=== PATIENT | female | born 1960 | race Caucasian/White ===

== ENCOUNTER 2016-10-10 18:53 | Emergency (ER) | payer OTHER ==
[~2016-10-10] VITALS: Ht 160 cm; Wt 98.0 kg
[~2016-10-10 18:53] MED LIST: CYCL-36 PO; LORTA5 PO; PROT40TA PO; RIVA15 PO
[2016-10-10 18:59] VITALS: BP 130/74; PULSE 84; RESP 18; TEMP 98.5; O2SAT 93
--- NOTE | 2016-10-10 19:40 | PD ---
HPI Chief Complaint: Headache Time Seen by Provider: 19:30 Travel History International Travel<30 days: No Contact w/Intl Traveler<30days: No Traveled to known affect area: No History of Present Illness HPI The patient is a 56-year-old female that complains of a gradual bifrontal headache that began at 9 AM yesterday. It increased gradually until 4 PM today and the patient came in. She does have nausea without vomiting and blurred vision. The patient is a diabetic. She did not check her sugars today. Last time she had a headache like this was one year ago. She does complain of some nonvertiginous dizziness. She apparently is being treated for a bilateral otitis externa. She also has a sore throat. PFSH Past Medical History Arthritis: No Asthma: No Autoimmune Disease: No Anxiety: No Depression: No Heart Rhythm Problems: No Cancer: No Cardiovascular Problems: Yes High Cholesterol: No Chemotherapy: No Chest Pain: No Congestive Heart Failure: No Cerebrovascular Accident: No Diabetes: Yes Patient Takes Glucophage: Yes Diminished Hearing: No Endocrine: No GERD: No Genitourinary: No Hiatal Hernia: No Hypertension: Yes Immune Disorder: No Kidney Stones: No Musculoskeletal: Yes (CHRONIC BACK PAIN) Neurologic: No Psychiatric: No Reproductive: No Respiratory: Yes (past pe) Immunizations Current: Yes Migraines: No Radiation Therapy: No Renal Failure: No Seizures: No Sickle Cell Disease: No Sleep Apnea: No Thyroid Disease: No Ulcer: No Tetanus Vaccination: Unknown Influenza Vaccination: No ?: Not LMP: 2 years Menopausal: Yes : 2 Para: 2 Past Surgical History Abdominal Surgery: Yes () AICD: No Arteriovenous Shunt: No Cardiac Surgery: No Section: Yes Ear Surgery: No Endocrine Surgery: No Eye Surgery: No Genitourinary Surgery: No Gynecologic Surgery: Yes () Insulin Pump: No Joint Replacement: No Neurologic Surgery: No Oral Surgery: No Pacemaker: No Thoracic Surgery: No Tonsillectomy: Yes Other Surgery: Yes Social History Alcohol Use: No Tobacco Use: No Substance Use: No Allergies-Medications (Allergen,Severity, Reaction): Coded Allergies: Sulfa (Verified Allergy, Severe, Anaphylaxis, 10/10/16) Reported Meds & Prescriptions Reported Meds & Active Scripts Active Reported Amoxicillin 500 Mg Cap 500 Mg PO BID Tramadol (Tramadol HCl) 50 Mg Tab 50 Mg PO Q6H PRN Metformin (Metformin HCl) 500 Mg Tab 500 Mg PO BIDPC With meals Lisinopril 20 Mg Tab 20 Mg PO DAILY Review of Systems Except as stated in HPI: all other systems reviewed are Neg Physical Exam Narrative GENERAL: The patient is alert, oriented 3 in moderate apparent distress with her generalized weakness. Her vital signs are normal. She does appear slightly dehydrated. There is no ketotic smell to her breath. SKIN: Warm and dry. No skin rash is present. HEAD: Atraumatic. Normocephalic. EYES: Pupils equal and round. No scleral icterus. No injection or drainage. ENT: No nasal bleeding or discharge. Mucous membranes pink and moist. Both canals show infection and tenderness but both tympanic membranes are clear. The throat is red without exudate or abscess. NECK: Trachea midline. No JVD. CARDIOVASCULAR: Regular rate and rhythm. No murmur appreciated. RESPIRATORY: No accessory muscle use. Clear to auscultation. Breath sounds equal bilaterally. GASTROINTESTINAL: Abdomen soft, non-tender, nondistended. Hepatic and splenic margins not palpable. MUSCULOSKELETAL: No obvious deformities. No clubbing. No cyanosis. No edema. NEUROLOGICAL: Awake and alert. No obvious cranial nerve deficits. Motor grossly within normal limits. Normal speech. PSYCHIATRIC: The patient is anxious; insight and judgment normal. Data Data Last Documented VS Vital Signs Date Time Temp Pulse Resp B/P Pulse Ox O2 Delivery O2 Flow Rate FiO2 10/10/16 21:11 86 18 102/55 96 Room Air 10/10/16 18:59 98.5 Orders Complete Blood Count With Diff (10/10/16 19:42) Comprehensive Metabolic Panel (10/10/16 19:42) Ct Brain W/O Iv Contrast(Rout) (10/10/16 19:42) Ecg Monitoring (10/10/16 19:42) Iv Access Insert/Monitor (10/10/16 19:42) Oximetry (10/10/16 19:42) Sodium Chloride 0.9% Flush (Ns Flush) (10/10/16 19:45) Ketorolac Inj (Toradol Inj) (10/10/16 19:45) Prochlorperazine Inj (Compazine Inj) (10/10/16 19:45) Diphenhydramine Inj (Benadryl Inj) (10/10/16 19:45) Sodium Chlor 0.9% 1000 Ml Inj (Ns 1000 M (10/10/16 19:42) Hydromorphone Pf Inj (Dilaudid Pf Inj) (10/10/16 19:45) Group A Rapid Strep Screen (10/10/16 19:56) Strep Culture (Group A) (10/10/16 19:50) Labs Laboratory Tests Test 10/10/16 19:50 White Blood Count 7.1 TH/MM3 Red Blood Count 4.63 MIL/MM3 Hemoglobin 13.1 GM/DL Hematocrit 39.7 % Mean Corpuscular Volume 85.8 FL Mean Corpuscular Hemoglobin 28.3 PG Mean Corpuscular Hemoglobin 33.0 % Concent Red Cell Distribution Width 12.9 % Platelet Count 324 TH/MM3 Mean Platelet Volume 7.2 FL Neutrophils (%) (Auto) 67.7 % Lymphocytes (%) (Auto) 22.9 % Monocytes (%) (Auto) 6.4 % Eosinophils (%) (Auto) 2.5 % Basophils (%) (Auto) 0.5 % Neutrophils # (Auto) 4.8 TH/MM3 Lymphocytes # (Auto) 1.6 TH/MM3 Monocytes # (Auto) 0.5 TH/MM3 Eosinophils # (Auto) 0.2 TH/MM3 Basophils # (Auto) 0.0 TH/MM3 CBC Comment DIFF FINAL Differential Comment Sodium Level 142 MEQ/L Potassium Level 3.9 MEQ/L Chloride Level 106 MEQ/L Carbon Dioxide Level 27.7 MEQ/L Anion Gap 8 MEQ/L Blood Urea Nitrogen 15 MG/DL Creatinine 0.90 MG/DL Estimat Glomerular Filtration 65 ML/MIN Rate Random Glucose 119 MG/DL Calcium Level 8.4 MG/DL Total Bilirubin 0.4 MG/DL Aspartate Amino Transf 48 U/L (AST/SGOT) Alanine Aminotransferase 90 U/L (ALT/SGPT) Alkaline Phosphatase 80 U/L Total Protein 7.4 GM/DL Albumin 3.6 GM/DL [facility] Medical Decision Making Medical Screen Exam Complete: Yes Emergency Medical Condition: Yes Medical Record Reviewed: Yes Interpretation(s) The CT brain is normal. The CBC is normal. The complete metabolic profile shows a GFR of 65, AST of 48, ALT of 90 is otherwise unremarkable. The strep screen is negative for group A strep antigen. Differential Diagnosis Migraine headache, tension headache, tension/migraine combination headache, normal pressure hydrocephalusunlikely, cluster headache, subarachnoid hemorrhagehighly unlikely Narrative Course It is now 9:17 PM and the patient feels much better. This is likely a migraine headache. It is one sided, associated with photophobia and nausea and she has had this before. Plan: The patient should follow-up with her primary care physician and is given Phenergan and Fioricet. Diagnosis Primary Impression: Migraine headache Additional Instructions: Do not drink alcohol or drive on the Fioricet or the Phenergan. Follow-up with these medications can make you sleepy. These medicines are only used when you start to get one of your bad headaches. Follow-up this week with your primary care physician. Med/Other Pt SpecificInfo: Prescription(s) given Scripts Promethazine (Phenergan)25 Mg Tab25 Mg PO Q6H PRN (Nausea/Vomiting) #30 TAB Ref 0 Prov:Chaitanya Nichols MD 10/10/16 Sfcmfrkhgq-Exocjgmxbougk-Urntosyn (Fioricet)50-300-40 Mg Cap1 Cap PO Q4H PRN ( HEADACHE) #30 CAP Ref 0 Prov:Chaitanya Nichols MD 10/10/16 Disposition: 01 DISCHARGE HOME Condition: Stable Chaitanya Nihcols MD Oct 10, 2016 19:40
[2016-10-10] MEDS ORDERED: SODIUM CHLOR 0.9% 1000 ML INJ 1,000 ML IV ONE (19:42)
[2016-10-10] MEDS ORDERED: TRAM50TA PO (19:44)
[2016-10-10] MEDS ORDERED: METF500T PO (19:44)
[2016-10-10] MEDS ORDERED: LISI-515 PO (19:44)
[2016-10-10] MEDS ORDERED: AMOX500C PO (19:44)
[2016-10-10] MEDS ORDERED: SODIUM CHLORIDE 0.9% FLUSH 5 ML FLUSH IVF PRN (19:45)
[2016-10-10] MEDS ORDERED: PROCHLORPERAZINE INJ 10 MG/2 ML VIAL IVP ONE (19:45)
[2016-10-10] MEDS ORDERED: HYDROmorphone HCL PF 1 MG/ML VIAL IVP ONE (19:45)
[2016-10-10] MEDS ORDERED: diphenhydrAMINE HCL 50 MG/ML VIAL IVP ONE (19:45)
[2016-10-10] MEDS ORDERED: KETOROLAC TROMETHAMINE 30 MG/ML (IVP) VIAL IVP ONE (19:45)
[2016-10-10 19:56] VITALS: RESP 18; O2SAT 98
[2016-10-10 20:09] LABS: AUTOMATED NEUTROPHIL # 4.8 TH/MM3 (1.8-7.7); BASOPHIL % 0.5 % (0.0-2.0); EOSINOPHIL # 0.2 TH/MM3 (0-0.4); EOSINOPHIL % 2.5 % (0.0-4.0); HEMATOCRIT 39.7 % (35.0-46.0); HEMO FLAGS DIFF FINAL; LYMPH % 22.9 % (9.0-44.0); LYMPHOCYTE # 1.6 TH/MM3 (1.0-4.8); MEAN CELL VOLUME 85.8 FL (80.0-100.0); MEAN CORPUSCULAR HEMOGLOBIN 28.3 PG (27.0-34.0); MONO % 6.4 % (0.0-8.0); NEUT % 67.7 % (16.0-70.0); PLATELET COUNT 324 TH/MM3 (150-450); RED BLOOD COUNT 4.63 MIL/MM3 (4.00-5.30); RED CELL DISTRIBUTION WIDTH 12.9 % (11.6-17.2); WHITE BLOOD COUNT 7.1 TH/MM3 (4.0-11.0)
[2016-10-10 20:14] VITALS: BP 134/63; PULSE 96; RESP 18; O2SAT 97
[2016-10-10 20:16] LABS: CHLORIDE 106 MEQ/L (98-107); POTASSIUM 3.9 MEQ/L (3.5-5.1); SODIUM (NA) 142 MEQ/L (136-145)
[2016-10-10 20:20] LABS: ANION GAP 8 MEQ/L (5-15); BICARBONATE 27.7 MEQ/L (21.0-32.0); BLOOD UREA NITROGEN 15 MG/DL (7-18)
[2016-10-10 20:23] LABS: ALT (GPT) 90 U/L (10-53); AST (GOT) 48 U/L (15-37); GLOMERULAR FILTRATION RATE 65 ML/MIN (>89)
[2016-10-10 20:24] LABS: TOTAL BILIRUBIN ADULT 0.4 MG/DL (0.2-1.0)
[2016-10-10 20:26] LABS: ALKALINE PHOSPHATASE 80 U/L (45-117)
--- NOTE | 2016-10-10 20:35 | RADHPO ---
EXAM DATE/TIME: 10/10/2016 20:15 [place] COMPARISON: No previous studies available for comparison. INDICATIONS : Frontal headache and nausea. RADIATION DOSE: 57.65 CTDIvol (mGy) MEDICAL HISTORY : Hypertension. Diabetes SURGICAL HISTORY : None. ENCOUNTER: Initial ACUITY: 2 days PAIN SCALE: 6/10 LOCATION: Bilateral frontal TECHNIQUE: Multiple contiguous axial images were obtained of the head. Using automated exposure control and adj ustment of the mA and/or kV according to patient size, radiation dose was kept as low as reasonably a chievable to obtain optimal diagnostic quality images. FINDINGS: CEREBRUM: The ventricles are normal for age. No evidence of midline shift, mass lesion, hemorrhage or acute in farction. No extra-axial fluid collections are seen. POSTERIOR FOSSA: The cerebellum and brainstem are intact. The 4th ventricle is midline. The cerebellopontine angle i s unremarkable. EXTRACRANIAL: The visualized portion of the orbits is intact. SKULL: The calvaria is intact. No evidence of skull fracture. CONCLUSION: Normal examination. Umair Brown MD on October 10, 2016 at 20:33 Board Certified Radiologist. This report was verified electronically.
[2016-10-10 21:11] VITALS: BP 102/55; PULSE 86; RESP 18; O2SAT 96
[2016-10-10] MEDS ORDERED: BUTA1CAP PO (21:19)
[2016-10-10] MEDS ORDERED: PROM25TA5 PO (21:19)
== END 2016-10-10 22:06 | disposition home or self-care (01) ==
LOC: PHED 18:53
DX: G43.909 Migraine, unspecified, not intractable, without status migrainosus (principal); R42 Dizziness and giddiness; R11.0 Nausea; E11.9 Type 2 diabetes mellitus without complications; I10 Essential (primary) hypertension; J02.9 Acute pharyngitis, unspecified; H60.93 Unspecified otitis externa, bilateral; Z79.84 Long term (current) use of oral hypoglycemic drugs
CPT/HCPCS: 70450; 80053; 85025; 87081; 87880; 96361; 96374; 96375; 99284; J0780; J1170; J1200; J1885; J7030

== ENCOUNTER → 2017-07-19 | Day surgery (SDC) | payer OTHER ==
[~2017-07-19] MED LIST changes: +AMOX500C PO; +BUTA1CAP PO; -CYCL-36 PO; +LISI-515 PO; -LORTA5 PO; +METF500T PO; +MIDAZOLAM HCL 2 MG/2 ML VIAL ONE; +ONDANSETRON HCL 4 MG/2 ML VIAL IV PUSH ONE; +PROM25TA5 PO; +PROPOFOL 200 MG/20 ML AMP IV ONE; -PROT40TA PO; -RIVA15 PO; +TRAM50TA PO; +ceFAZolin 2 GM PREMIX 50 ML ONE
--- NOTE | 2017-07-19 09:01 | MP ---
cc: NOHELIA CASTRO M.D., CARLOS M.D. DATE OF SURGERY 07/19/2017 DATE OF 1960 PREOPERATIVE DIAGNOSIS Patient with postmenopausal bleeding, suspected endometrial polyp. PROCEDURE Exam under anesthesia. Diagnostic hysteroscopy with polypectomy. Fractional D&C. POSTOPERATIVE DIAGNOSIS Patient with postmenopausal bleeding, suspected endometrial polyp. SURGEON MD Mukesh ANESTHESIA General with LMA. ESTIMATED BLOOD LOSS Less than 25 cc. OPERATIVE FINDINGS The patient had atrophic findings. Endometrial cavity demonstrated a small less than 1-cm polyp arising from the posterior endometrium. The rest of the cavity was atrophic in appearance. The patient had no other significant findings during the exam. INDICATIONS FOR PROCEDURE Patient with a history of recurrent postmenopausal bleeding. Ultrasound revealed a lesion within the endometrial cavity, suspected polyp. RECOMMENDATION Proceed with diagnostic hysteroscopy and polypectomy. PROCEDURE The patient received Ancef 2 grams prophylactically. She underwent general anesthesia with LMA. She was carefully positioned in dorsal lithotomy position using candy-cane stirrups. She had sequentials placed on her lower extremities for VTE prophylaxis and then she was prepped and draped. A time-out was conducted and agreed on by all present in the room. The patient's exam was as stated above. There was no evidence of prolapse. She just had some atrophic findings. The cervix was midline and normal in appearance. The uterus was anteverted. The uterine sound was placed to about 8 cm. The cervix was dilated using simple Mc dilators securing the cervix anteriorly with a single-tooth tenaculum. A 5-mm rigid hysteroscope was used to examine the cavity using normal saline as a distension media. The findings were as described above. This was followed by use of a simple polyp forceps and a sharp curette to remove the polyp. Re-examination of the endometrial cavity after the polypectomy revealed removal of the lesion. There was a scan bleeding from the base of the polyp, otherwise no significant lesion. No perforation occurred. Tissue specimens were sent as endocervical and endometrial plus polyp. At the completion of case the patient was stable and there was no active bleeding. Full count was made and correct. She was taken to the recovery room on room air. MD MELI Calvin/FLIP /8:44 AM /8:49 AM
== END | disposition home or self-care (01) ==
LOC: ESDC 07:19
PROVIDERS: ATTEND Obstetrics & Gynecology
DX: N95.0 Postmenopausal bleeding (principal)
CPT/HCPCS: 00952; 58558; 88305; J0690; J2250; J2405; J3010

== ENCOUNTER 2018-07-05 23:08 | Observation (INO) ==
--- NOTE | 2018-07-05 23:54 | ED ---
HPI General Chief Complaint: Chest Pain Stated Complaint: sob Time Seen by Provider: 07/05/18 23:21 History of Present Illness HPI narrative: Patient is a 57-year-old female who tonight woke up from sleep got to the bathroom and suddenly felt short of breath and chest pain she thought she might pass out she called her to come in Holter. Patient has a history of diabetes which is diet controlled and recently she had able to come off of metformin as her diet low-carb was decreasing her need for metformin. She also takes medications for fibromyalgia she takes BuSpar as well as amitriptyline low-dose. No new medications tonight she was feeling fine until she woke up from sleep walk to the bathroom and thought suddenly onset of shortness of breath chest pain comes to the ER doing weak generalized. Nothing is taken for the symptoms no nausea no vomit no diarrhea reported. Patient has a history 2 years ago she had a pulmonary embolism and was on Coumadin for 6 months and has been off now for a year and a half. In the ER heart rate is normal sinus at 85 bpm her EKG has a low voltage to low amplitude in all leads but no signs of ST elevation or depression she does have flipped T' s in V2. I will do a CAT scan labs fluid to rule out pulmonary embolism Related Data Home Medications Medication Instructions Recorded Confirmed amitriptyline 50 mg PO QPM 07/05/18 07/05/18 bupropion HCl 100 mg PO QAM 07/05/18 07/05/18 Allergies Allergy/AdvReac Type Severity Reaction Status Date / Time Sulfa (Sulfonamide Allergy Severe Anaphylaxis Verified 07/05/18 23:28 Antibiotics) Review of Systems ROS: all other systems reviewed are negative [facility] Family History Family History Other Cardiovascular disease Social History Social History Substance History: No History of Abuse Second Hand Smoke Exposure: No Smoking Status: Never smoker How Often Do You Have a Drink Containing Alcohol: Never Recent Travel in [facility] within the Last 8 Weeks: No Recent Out of Country Travel within the Last 8 Weeks: No Immunization History Tetanus Immunization: Never Vaccinated Exam Narrative Exam Narrative: GENERAL: appears listless , afebrile 95% sat on room Air SKIN: Warm and dry. HEAD: Atraumatic. Normocephalic. EYES: Pupils equal and round. No scleral icterus. No injection or drainage. ENT: No nasal bleeding or discharge. Mucous membranes pink and moist. NECK: Trachea midline. No JVD. CARDIOVASCULAR: Regular rate and rhythm. RESPIRATORY: No accessory muscle use. Clear to auscultation. Breath sounds equal bilaterally. GASTROINTESTINAL: Abdomen soft, non-tender, nondistended. Hepatic and splenic margins not palpable. MUSCULOSKELETAL: Extremities without clubbing, cyanosis, or edema. No obvious deformities. NEUROLOGICAL: Awake and alert. No obvious cranial nerve deficits. Motor grossly within normal limits. Five out of 5 muscle strength in the arms and legs. Normal speech. PSYCHIATRIC: Appropriate mood and affect; insight and judgment normal. Course Initial Documented Vital Signs Temperature 98.0 F 07/05/18 23:28 Pulse Rate 77 07/05/18 23:28 Respiratory Rate 20 07/05/18 23:28 Blood Pressure 119/61 07/05/18 23:28 Pulse Oximetry 96 07/05/18 23:28 Last Documented Vital Signs Temperature 97.1 F L 07/06/18 12:41 Pulse Rate 87 07/06/18 15:16 Respiratory Rate 18 07/06/18 12:41 Blood Pressure 126/73 07/06/18 12:41 Pulse Oximetry 96 07/06/18 08:30 Medical Decision Making MDM Narrative Medical decision making narrative: CTA pulmonary no findings no PE no PNA no PTX ekg negative no change from prior EKG from 2104 minimal elevations in 2,3, and AVL same as 2014 no chagne trop neg times 2 admit to tele observ Medical Screen Exam Complete: Yes Emergency Medical Condition: Yes Differential Diagnosis Differential Diagnosis: DVT with PE vs acs non stemi , PNA vs PTX other Lab Data Result diagrams: 07/06/18 00:08 07/06/18 13:40 Lab Results 07/06/18 07/06/18 07/06/18 Range/Units 00:08 00:08 00:08 CBC w Diff Auto diff final WBC 7.9 (4.0-11.0) th/mm3 RBC 4.85 (4.00-5.30) mil/mm3 Hgb 13.7 (11.6-15.3) gm/dL Hct 41.6 (35.0-46.0) % MCV 85.8 (80.0-100.0) fL MCH 28.3 (27.0-34.0) pg MCHC 33.0 (32.0-36.0) % RDW 13.2 (11.6-17.2) % Plt Count 277 (150-450) th/mm3 MPV 7.9 (7.0-11.0) fL Neut % (Auto) 59.3 (16.0-70.0) % Lymph % (Auto) 31.3 (9.0-44.0) % [place] % (Auto) 5.9 (0.0-8.0) % Eos % (Auto) 2.7 (0.0-4.0) % Baso % (Auto) 0.8 (0.0-2.0) % Neut # (Auto) 4.6 (1.8-7.7) th/mm3 Lymph # (Auto) 2.5 (1.0-4.8) th/mm3 [place] # (Auto) 0.5 (0.0-0.9) th/mm3 Eos # (Auto) 0.2 (0.0-0.4) th/mm3 Baso # (Auto) 0.1 (0.0-0.2) th/mm3 WBC Differential . Differential Comment . PT (9.8-11.6) sec INR Ratio D-Dimer Quant (PE/DVT) 0.41 (0.00-0.50) mg/L FEU Sodium 139 (136-145) meq/L Potassium 4.1 (3.5-5.1) meq/L Chloride 105 (98-107) meq/L Carbon Dioxide 24.9 (21.0-32.0) meq/L Anion Gap 9 (5-15) meq/L BUN 18 (7-18) mg/dL Creatinine 1.40 H (0.50-1.00) mg/dL Estimated GFR 39 L (>89) mL/min POC Glucose (68-110) mg/dl Random Glucose 135 H (74-106) mg/dL Calcium 8.4 L (8.5-10.1) mg/dL Total Bilirubin 0.4 (0.2-1.0) mg/dL AST 24 (15-37) U/L ALT 38 (10-53) U/L Alkaline Phosphatase 75 (45-117) U/L Total Creatine Kinase (26-192) U/L Troponin I (0.02-0.05) ng/mL Total Protein 7.6 (6.4-8.2) g/dL Albumin 3.8 (3.4-5.0) g/dL Triglycerides (42-150) mg/dL Cholesterol (120-200) mg/dL LDL Cholesterol, Calc (0-99) mg/dL HDL Cholesterol (40.0-60.0) mg/dL Cholesterol/HDL Ratio Ratio 07/06/18 07/06/18 07/06/18 Range/Units 00:08 01:59 01:59 CBC w Diff WBC (4.0-11.0) th/mm3 RBC (4.00-5.30) mil/mm3 Hgb (11.6-15.3) gm/dL Hct (35.0-46.0) % MCV (80.0-100.0) fL MCH (27.0-34.0) pg MCHC (32.0-36.0) % RDW (11.6-17.2) % Plt Count (150-450) th/mm3 MPV (7.0-11.0) fL Neut % (Auto) (16.0-70.0) % Lymph % (Auto) (9.0-44.0) % [place] % (Auto) (0.0-8.0) % Eos % (Auto) (0.0-4.0) % Baso % (Auto) (0.0-2.0) % Neut # (Auto) (1.8-7.7) th/mm3 Lymph # (Auto) (1.0-4.8) th/mm3 [place] # (Auto) (0.0-0.9) th/mm3 Eos # (Auto) (0.0-0.4) th/mm3 Baso # (Auto) (0.0-0.2) th/mm3 WBC Differential Differential Comment PT 10.2 (9.8-11.6) sec INR 1.0 Ratio D-Dimer Quant (PE/DVT) (0.00-0.50) mg/L FEU Sodium (136-145) meq/L Potassium (3.5-5.1) meq/L Chloride (98-107) meq/L Carbon Dioxide (21.0-32.0) meq/L Anion Gap (5-15) meq/L BUN (7-18) mg/dL Creatinine (0.50-1.00) mg/dL Estimated GFR (>89) mL/min POC Glucose (68-110) mg/dl Random Glucose (74-106) mg/dL Calcium (8.5-10.1) mg/dL Total Bilirubin (0.2-1.0) mg/dL AST (15-37) U/L ALT (10-53) U/L Alkaline Phosphatase (45-117) U/L Total Creatine Kinase (26-192) U/L Troponin I Less than 0.02 L (0.02-0.05) ng/mL Total Protein (6.4-8.2) g/dL Albumin (3.4-5.0) g/dL Triglycerides 91 (42-150) mg/dL Cholesterol 170 (120-200) mg/dL LDL Cholesterol, Calc 105 H (0-99) mg/dL HDL Cholesterol 46.9 (40.0-60.0) mg/dL Cholesterol/HDL Ratio 3.62 Ratio 07/06/18 07/06/18 07/06/18 Range/Units 03:20 06:33 12:34 CBC w Diff WBC (4.0-11.0) th/mm3 RBC (4.00-5.30) mil/mm3 Hgb (11.6-15.3) gm/dL Hct (35.0-46.0) % MCV (80.0-100.0) fL MCH (27.0-34.0) pg MCHC (32.0-36.0) % RDW (11.6-17.2) % Plt Count (150-450) th/mm3 MPV (7.0-11.0) fL Neut % (Auto) (16.0-70.0) % Lymph % (Auto) (9.0-44.0) % [place] % (Auto) (0.0-8.0) % Eos % (Auto) (0.0-4.0) % Baso % (Auto) (0.0-2.0) % Neut # (Auto) (1.8-7.7) th/mm3 Lymph # (Auto) (1.0-4.8) th/mm3 [place] # (Auto) (0.0-0.9) th/mm3 Eos # (Auto) (0.0-0.4) th/mm3 Baso # (Auto) (0.0-0.2) th/mm3 WBC Differential Differential Comment PT (9.8-11.6) sec INR Ratio D-Dimer Quant (PE/DVT) (0.00-0.50) mg/L FEU Sodium (136-145) meq/L Potassium (3.5-5.1) meq/L Chloride (98-107) meq/L Carbon Dioxide (21.0-32.0) meq/L Anion Gap (5-15) meq/L BUN (7-18) mg/dL Creatinine (0.50-1.00) mg/dL Estimated GFR (>89) mL/min POC Glucose 120 H (68-110) mg/dl Random Glucose (74-106) mg/dL Calcium (8.5-10.1) mg/dL Total Bilirubin (0.2-1.0) mg/dL AST (15-37) U/L ALT (10-53) U/L Alkaline Phosphatase (45-117) U/L Total Creatine Kinase 102 (26-192) U/L Troponin I Less than 0.02 L Less than 0.02 L (0.02-0.05) ng/mL Total Protein (6.4-8.2) g/dL Albumin (3.4-5.0) g/dL Triglycerides (42-150) mg/dL Cholesterol (120-200) mg/dL LDL Cholesterol, Calc (0-99) mg/dL HDL Cholesterol (40.0-60.0) mg/dL Cholesterol/HDL Ratio Ratio 07/06/18 07/06/18 Range/Units 13:40 16:32 CBC w Diff WBC (4.0-11.0) th/mm3 RBC (4.00-5.30) mil/mm3 Hgb (11.6-15.3) gm/dL Hct (35.0-46.0) % MCV (80.0-100.0) fL MCH (27.0-34.0) pg MCHC (32.0-36.0) % RDW (11.6-17.2) % Plt Count (150-450) th/mm3 MPV (7.0-11.0) fL Neut % (Auto) (16.0-70.0) % Lymph % (Auto) (9.0-44.0) % [place] % (Auto) (0.0-8.0) % Eos % (Auto) (0.0-4.0) % Baso % (Auto) (0.0-2.0) % Neut # (Auto) (1.8-7.7) th/mm3 Lymph # (Auto) (1.0-4.8) th/mm3 [place] # (Auto) (0.0-0.9) th/mm3 Eos # (Auto) (0.0-0.4) th/mm3 Baso # (Auto) (0.0-0.2) th/mm3 WBC Differential Differential Comment PT (9.8-11.6) sec INR Ratio D-Dimer Quant (PE/DVT) (0.00-0.50) mg/L FEU Sodium 140 (136-145) meq/L Potassium 4.3 (3.5-5.1) meq/L Chloride 107 (98-107) meq/L Carbon Dioxide 24.3 (21.0-32.0) meq/L Anion Gap 9 (5-15) meq/L BUN 25 H (7-18) mg/dL Creatinine 1.10 H (0.50-1.00) mg/dL Estimated GFR 51 L (>89) mL/min POC Glucose 112 H (68-110) mg/dl Random Glucose 130 H (74-106) mg/dL Calcium 8.0 L (8.5-10.1) mg/dL Total Bilirubin (0.2-1.0) mg/dL AST (15-37) U/L ALT (10-53) U/L Alkaline Phosphatase (45-117) U/L Total Creatine Kinase (26-192) U/L Troponin I (0.02-0.05) ng/mL Total Protein (6.4-8.2) g/dL Albumin (3.4-5.0) g/dL Triglycerides (42-150) mg/dL Cholesterol (120-200) mg/dL LDL Cholesterol, Calc (0-99) mg/dL HDL Cholesterol (40.0-60.0) mg/dL Cholesterol/HDL Ratio Ratio Imaging Data Radiologist's impression: Chest CTA 07/06/18 01:11 CONCLUSION: 1. CTA negative for pulmonary embolic disease. Discharge Plan Discharge Disposition Patient Disposition: 30 Still Patient Discharge Condition Condition: Stable Discharge Order Discharge Orders: Discharge Order (Routine); Ordered 07/06/18 Ordered By: Lucy Gifford Discharge Details Anticipated Discharge Date: 07/06/18 Discharge Comment: OK TO DC AFTER 4PM. Physicians Team ED Provider: Neel Hines Attending Provider: Peter Vines ED Status: Left Department Discharge Information Discharge Date/Time: 07/06/18 06:46
[2018-07-06 00:22] LABS: Baso # (Auto) 0.1 th/mm3 (0.0-0.2); Baso % (Auto) 0.8 % (0.0-2.0); Eos # (Auto) 0.2 th/mm3 (0.0-0.4); Eos % (Auto) 2.7 % (0.0-4.0); Hematocrit 41.6 % (35.0-46.0); Hemoglobin 13.7 gm/dL (11.6-15.3); Lymph # (Auto) 2.5 th/mm3 (1.0-4.8); Lymph % (Auto) 31.3 % (9.0-44.0); Mean Corpuscular Hemoglobin 28.3 pg (27.0-34.0); Mean Corpuscular Volume 85.8 fL (80.0-100.0); Mean Platelet Volume 7.9 fL (7.0-11.0); Mono # (Auto) 0.5 th/mm3 (0.0-0.9); Mono % (Auto) 5.9 % (0.0-8.0); Neut # (Auto) 4.6 th/mm3 (1.8-7.7); Neut % (Auto) 59.3 % (16.0-70.0); Platelet Count 277 th/mm3 (150-450); Red Blood Count 4.85 mil/mm3 (4.00-5.30); Red Cell Distribution Width 13.2 % (11.6-17.2); White Blood Count 7.9 th/mm3 (4.0-11.0)
[2018-07-06 00:30] LABS: Chloride 105 meq/L (98-107); Potassium 4.1 meq/L (3.5-5.1); Sodium 139 meq/L (136-145)
[2018-07-06 00:33] LABS: Prothrombin Time 10.2 sec (9.8-11.6)
[2018-07-06 00:34] LABS: Albumin 3.8 g/dL (3.4-5.0); Anion Gap 9 meq/L (5-15); Blood Urea Nitrogen 18 mg/dL (7-18); Calcium 8.4 mg/dL (8.5-10.1); Carbon Dioxide 24.9 meq/L (21.0-32.0); Glucose,Random 135 mg/dL (74-106)
[2018-07-06 00:37] LABS: Alanine Aminotransferase 38 U/L (10-53); Aspartate Aminotransferase 24 U/L (15-37); Glomerular Filtration Rate 39 mL/min (>89)
[2018-07-06 00:39] LABS: Total Protein 7.6 g/dL (6.4-8.2)
[2018-07-06 00:40] LABS: Alkaline Phosphatase 75 U/L (45-117)
[2018-07-06] MEDS ORDERED: Sod Chloride 0.9% Inj 1,000 ML IV.SIG SCH (01:00)
[2018-07-06] MEDS ORDERED: Ketorolac Inj 30 MG/ML (IVP) Vial IV.PUSH ONE (01:18)
--- NOTE | 2018-07-06 01:33 | CT ---
EXAM DATE: 07/06/2018 1:09 AM EST AGE/SEX: 57 years / Female INDICATIONS: Chest pain. Shortness of breath. CLINICAL DATA: This is the patient's initial encounter. Patient reports that signs and symptoms have been present for 1 day and indicates a pain score of 7/10. MEDICAL/SURGICAL HISTORY: Diabetes. None. RADIATION DOSE: 21.12 CTDI (mGy) COMPARISON: No prior exams available for comparison. TECHNIQUE: Volumetric scanning was performed using a multi-row detector CT scanner during bolus infu mel of 50 ml Visipaque 320 (iodixanol) nonionic water-soluble contrast as a single exam dose. The d daniel was post processed with a variety of visualization algorithms including full volume maximum inten sity projection and sliding thin slab reformation. Using automated exposure control and adjustment o f the mA and/or kV according to patient size, radiation dose was kept as low as reasonably achievable to obtain optimal diagnostic quality images. DICOM format image data is available electronically fo r review and comparison. FINDINGS: Contrast bolus is suboptimal but no filling defects are seen centrally to suggest pulmonary embolic d isease. Mild dependent atelectasis in the lungs. No pleural or pericardial effusion. No acute finding s in the upper abdomen. CONCLUSION: 1. CTA negative for pulmonary embolic disease. Electronically signed by: Rusty Kimble MD 07/06/2018 1:32 AM EST
[2018-07-06] MEDS ORDERED: Acetaminophen 500 MG Tablet PO PRN (05:45)
[2018-07-06] MEDS ORDERED: Morphine Inj 4 MG/ML Vial IV.PUSH PRN (05:45)
[2018-07-06 06:57] LABS: Creatine Kinase 102 U/L (26-192)
--- NOTE | 2018-07-06 09:01 | P.HP ---
History of Present Illness Primary Care Physician: Rich Sweet Chief Complaint: chest pain History of Present Illness: This is a 57-year-old female patient with a known medical history of diabetes and fibromyalgia who presented to the ED with complaints of chest pain and dizziness. Patient states that she got up from the chair last evening around 10 PM to pressure teeth and she states that she immediately felt lightheaded and dizzy as well as associated chest pain and shortness of breath. She states that she felt like she was going to pass out. Patient characterizes the pain as midsternal that radiated to her left side of her left arm, she states that her left arm felt sharp and tingling, the pain lasted a few minutes and went away without any known aggravating or alleviating factors, she does admit to associated nausea, shortness of breath, patient states she did have this sensation before 2 years ago, she states that she has a history of DVT and initiated her left lower leg and then she also had a pulmonary embolism. She has recently been taken off the Xarelto 6 months ago and follows closely with her PCP, last seen a week ago with no changes to her medications. Patient denies any recent illness including fever, chills, cough, headache, abdominal pain, vomiting, diarrhea or dysuria. Denies ever having a stress test in the past. Family history significant for cardiovascular disease. Denies any tobacco abuse. Will check lipid panel. Denies any history of hypertension. Does have a history of diabetes although this is lifestyle diet controlled. CTA in ED was done which was negative for PE. Patient is lying in bed comfortably, chest pain and all symptoms have improved. Orthostatic blood pressures negative. Given 1 L bolus. Will continue IV fluids as well as do a treadmill stress test. at bedside and updated as well. - Diagnosis (1) Chest pain (2) Acute kidney injury (3) Dehydration Review of Systems All other systems reviewed negative except as stated in HPI PMFSH - History History Provided By: Patient - Medical History Medical History: Medical History (Last Reviewed 07/06/18 @ 09:18 by Lucy Gifford) Depression Diabetes mellitus Fibromyalgia Hx of pulmonary embolus - Surgical History Surgical History: Surgical History (Last Reviewed 07/06/18 @ 09:00 by Lucy Gifford) No history of previous surgery - Family History Family History: Family History (Last Updated 07/06/18 @ 09:19 by Lucy Gifford) Other Cardiovascular disease - Social History I have reviewed the patient's Social History: Yes - Tobacco History Second Hand Smoke Exposure: No Tobacco Use In Past 30 Days: No Smoking Status: Never smoker - Alcohol History How Often Do You Have a Drink Containing Alcohol: Never - Substance Use History Substance History: No History of Abuse - Travel History Recent Travel in the [place] Within the Last 8 Weeks: No Recent Travel Out of the Country Within the Last 8 Weeks: No - Immunization History Tetanus Immunization: Never Vaccinated Medications and Allergies Active Medications: Active Medications Acetaminophen (Tylenol) 500 mg PO Q4H PRN PRN Reason: HEADACHE Morphine Sulfate (Morphine Inj) 2 mg IV.PUSH Q4H PRN PRN Reason: PAIN SCALE 8 TO 10 Sodium Chloride (Ns Flush) 2 ml IV.FLUSH BID GLYNN Sodium Chloride (Ns Flush) 2 ml IV.FLUSH PRN PRN PRN Reason: FLUSH AFTER USING IV ACCESS Allergies Allergy/AdvReac Type Severity Reaction Status Date / Time Sulfa (Sulfonamide Allergy Severe Anaphylaxis Verified 07/05/18 23:28 Antibiotics) Home Medications Medication Instructions Recorded Confirmed Type amitriptyline 50 mg PO QPM 07/05/18 07/05/18 History bupropion HCl 100 mg PO QAM 07/05/18 07/05/18 History Exam Vital signs: Vital Signs 07/05/18 23:28 07/05/18 23:38 07/06/18 03:04 Temperature 98.0 F Pulse Rate 77 78 88 Respiratory Rate 20 20 16 Blood Pressure 119/61 110/60 129/68 Pulse Oximetry 96 95 95 07/06/18 06:22 07/06/18 07:29 07/06/18 08:30 Temperature 97.8 F Pulse Rate 81 72 Respiratory Rate 16 16 Blood Pressure 109/62 115/71 Pulse Oximetry 99 96 Intake & Output 07/05/18 07/06/18 07/06/18 18:59 06:59 18:59 Intake Total 1000 / 1000 Balance 1000 / 1000 Weight 95.2 kg Intake: IV 1000 / 1000 NS Inj 1,000 ML @ 1000 mls/hr 1000 / 1000 IV.SIG BOLUS GLYNN Rx#:[id number] Narrative: GENERAL: Well-developed, well-nourished patient in NAD. SKIN: Warm and dry. No rash. HEAD: Normocephalic. Atraumatic. EYES: Pupils equal and round. No scleral icterus. No injection or drainage. ENT: No nasal bleeding or discharge. Mucous membranes pink and moist. NECK: Supple. Trachea midline. CARDIOVASCULAR: Regular rate and rhythm. S1, S2 noted. No murmur appreciated. Mild chest discomfort to left chest and upper arm on palpation. RESPIRATORY: No accessory muscle use. Clear to auscultation. Breath sounds equal bilaterally. GASTROINTESTINAL: Abdomen soft, non-tender, nondistended. Normoactive bowel sounds x4. MUSCULOSKELETAL: No obvious deformities. Extremities without clubbing, cyanosis , or edema. NEUROLOGICAL: Awake and alert. No obvious cranial nerve deficits. Motor grossly within normal limits. 5/5 muscle strength in bilateral upper and lower extremities. Normal speech. PSYCHIATRIC: Appropriate mood and affect; insight and judgment normal. Results - Labs CBC & Chem 7: 07/06/18 00:08 07/06/18 00:08 Labs: Laboratory Results - last 24 hr 07/06/18 07/06/18 07/06/18 00:08 00:08 00:08 CBC w Diff Auto diff final WBC 7.9 RBC 4.85 Hgb 13.7 Hct 41.6 MCV 85.8 MCH 28.3 MCHC 33.0 RDW 13.2 Plt Count 277 MPV 7.9 Neut % (Auto) 59.3 Lymph % (Auto) 31.3 Donley % (Auto) 5.9 Eos % (Auto) 2.7 Baso % (Auto) 0.8 Neut # (Auto) 4.6 Lymph # (Auto) 2.5 Donley # (Auto) 0.5 Eos # (Auto) 0.2 Baso # (Auto) 0.1 WBC Differential . Differential Comment . PT INR D-Dimer Quant (PE/DVT) 0.41 Sodium 139 Potassium 4.1 Chloride 105 Carbon Dioxide 24.9 Anion Gap 9 BUN 18 Creatinine 1.40 H Estimated GFR 39 L Random Glucose 135 H Calcium 8.4 L Total Bilirubin 0.4 AST 24 ALT 38 Alkaline Phosphatase 75 Total Creatine Kinase Troponin I Total Protein 7.6 Albumin 3.8 07/06/18 07/06/18 07/06/18 00:08 01:59 03:20 CBC w Diff WBC RBC Hgb Hct MCV MCH MCHC RDW Plt Count MPV Neut % (Auto) Lymph % (Auto) Donley % (Auto) Eos % (Auto) Baso % (Auto) Neut # (Auto) Lymph # (Auto) Donley # (Auto) Eos # (Auto) Baso # (Auto) WBC Differential Differential Comment PT 10.2 INR 1.0 D-Dimer Quant (PE/DVT) Sodium Potassium Chloride Carbon Dioxide Anion Gap BUN Creatinine Estimated GFR Random Glucose Calcium Total Bilirubin AST ALT Alkaline Phosphatase Total Creatine Kinase Troponin I Less than 0.02 L Less than 0.02 L Total Protein Albumin 07/06/18 06:33 CBC w Diff WBC RBC Hgb Hct MCV MCH MCHC RDW Plt Count MPV Neut % (Auto) Lymph % (Auto) Donley % (Auto) Eos % (Auto) Baso % (Auto) Neut # (Auto) Lymph # (Auto) Donley # (Auto) Eos # (Auto) Baso # (Auto) WBC Differential Differential Comment PT INR D-Dimer Quant (PE/DVT) Sodium Potassium Chloride Carbon Dioxide Anion Gap BUN Creatinine Estimated GFR Random Glucose Calcium Total Bilirubin AST ALT Alkaline Phosphatase Total Creatine Kinase 102 Troponin I Less than 0.02 L Total Protein Albumin - Imaging Impressions Chest CTA 07/06/18 01:11 CONCLUSION: 1. CTA negative for pulmonary embolic disease. Caprini VTE Risk Assessment Caprini VTE Risk Assessment: No/Low Risk (score <= 1) Caprini Risk Assessment Model: Point Value = 1 Point Value = 2 Point Value = 3 Point Value = 5 Age 41-60 Minor surgery BMI > 25 kg/m2 Swollen legs Varicose veins or History of unexplained or recurrent spontaneous Oral contraceptives or hormone replacement Sepsis (< 1 month) Serious lung disease, including pneumonia (< 1 month) Abnormal pulmonary function Acute myocardial infarction Congestive heart failure (< 1 month) History of inflammatory bowel disease Medical patient at bed rest Age 61-74 Arthroscopic surgery Major open surgery (> 45 min) Laparoscopic surgery (> 45 min) Malignancy Confined to bed (> 72 hours) Immobilizing plaster cast Central venous access Age >= 75 History of VTE Family history of VTE Factor V Leiden Prothrombin [id number] Lupus anticoagulant Anticardiolipin antibodies Elevated serum homocysteine Heparin-induced thrombocytopenia Other congenital or acquired thrombophilia Stroke (< 1 month) Elective arthroplasty Hip, pelvis, or leg fracture Acute spinal cord injury (< 1 month) Prophylaxis Regimen: Total Risk Factor Score Risk Level Prophylaxis Regimen 0-1 Low Early ambulation 2 Moderate Order ONE of the following: *Sequential Compression Device (SCD) *Heparin 5000 units SQ BID 3-4 Higher Order ONE of the following medications: *Heparin 5000 units SQ TID *Enoxaparin/Lovenox 40 mg SQ daily (WT < 150 kg, CrCl > 30 mL/min) *Enoxaparin/Lovenox 30 mg SQ daily (WT < 150 kg, CrCl > 10-29 mL/min) *Enoxaparin/Lovenox 30 mg SQ BID (WT < 150 kg, CrCl > 30 mL/min) AND/OR *Sequential Compression Device (SCD) 5 or more Highest Order ONE of the following medications: *Heparin 5000 units SQ TID (Preferred with Epidurals) *Enoxaparin/Lovenox 40 mg SQ daily (WT < 150 kg, CrCl > 30 mL/min) *Enoxaparin/Lovenox 30 mg SQ daily (WT < 150 kg, CrCl > 10-29 mL/min) *Enoxaparin/Lovenox 30 mg SQ BID (WT < 150 kg, CrCl > 30 mL/min) AND *Sequential Compression Device (SCD) Assessment and Plan - Assessment (1) Chest pain Code(s): R07.9 - Chest pain, unspecified Status: Acute (2) Acute kidney injury Code(s): N17.9 - Acute kidney failure, unspecified Status: Acute (3) Dehydration Code(s): E86.0 - Dehydration Status: Acute - Plan This is a 57-year-old female patient with: Chest pain -Patient has been admitted to the chest pain center for observation. Serial EKGs and serial troponins ordered for ruling out ACS purposes. Troponin trend flat. -EKG reviewed and showing controlled rate, with no ST changes to indicated ischemia. T waves are flipped in V2. -CTA done in ED, ruled out PE and any acute findings. -Continued on cardiac telemetry overnight, no acute findings. Continue to monitor. -ACS ruled out with serial EKGs and serial troponins, will undergo a cardiac treadmill stress test to further rule out any ischemia. -Patient is stable at this time and agreeable to the plan. -Further hospitalization and treatment plan will depend on treadmill stress test results. -Supportive care. Continue to monitor. Dehydration Acute kidney injury suspect secondary to above Dizziness and lightheadedness suspect secondary to above. Improved. -Creatinine 1.4 on presentation. No history of kidney disease. -Given 1L NS bolus in ED. -Will continue IVF. -Recheck BMP at 1400. Asses for improvement. Check UA. -Orthostatic BPs normal. Monitor BP trend. Diabetes, diet controlled -Managed by PCP. Diet and lifestyle controlled. -Will monitor. DVT prophylaxis: SCDs,
[2018-07-06] MEDS ORDERED: Sod Chloride 0.9% Inj 1,000 ML IV.CONT SCH (09:15)
[2018-07-06] MEDS ORDERED: Dextrose 50% in Water 50 ML Vial IV.PUSH PRN (09:29)
--- NOTE | 2018-07-06 12:08 | ECG ---
Date Performed: 07/06/2018 Time Performed: 03:34:12 PTAGE: 57 years EKG: Sinus rhythm LOW QRS VOLTAGE IN PRECORDIAL LEADS BORDERLINE ECG Since the PREVIOUS TRACING , no significant change noted PREVIOUS TRACIN07/05/2018 23.32 DOCTOR: Eloy Faith Interpretating Date/Time 07/06/2018 12:07:38
--- NOTE | 2018-07-06 12:08 | ECG ---
Date Performed: 07/05/2018 Time Performed: 23:32:32 PTAGE: 57 years EKG: Sinus rhythm POSSIBLE RIGHT VENTRICULAR HYPERTROPHY MODERATE ST DEPRESSION ABNORMAL ECG Since the PREVIOUS TRACING , no significant change noted PREVIOUS TRACIN06/11/2015 04.31 DOCTOR: Eloy Faith Interpretating Date/Time 07/06/2018 12:07:22
[2018-07-06] MEDS: Insulin NovoLOG Aspart Correctional Sugar Inj SQ SCH ×2 (12:36→17:17)
[2018-07-06 13:38] LABS: Chol/HDL Ratio 3.62 Ratio; HDL Cholesterol 46.9 mg/dL (40.0-60.0)
[2018-07-06 14:04] LABS: Potassium 4.3 meq/L (3.5-5.1)
[2018-07-06 14:06] LABS: Carbon Dioxide 24.3 meq/L (21.0-32.0)
--- NOTE | 2018-07-06 14:27 | TR ---
Date Performed: 07/06/2018 Time Performed: 11:26:52 DOCTOR: Eloy Faith DRUG LIST: CLINICAL HISTORY: REASON FOR TEST: REASON FOR ENDING: OBSERVATION: CONCLUSION: Cornelio protocol completed test stopped secondary to reaching target heart rate. Good exercise tolerance. Good BP response. Recovery quick and unremarkable. No reproducible chest discomfo rt, does complain of being fatigued.Maximum FL=969 Target HR Lfuirizq=952.0% Maximum LN=517/100 Total Exercise Time=6:51 COMMENTS: Patient exercised using the Cornelio protocol. No electrocardiographic changes were seen to suggest ischemia. Hemodynamic response to exercise was normal. No significant arrhythmia was prese nt.
--- NOTE | 2018-07-06 14:50 | ECG ---
Date Performed: 07/06/2018 Time Performed: 06:29:40 PTAGE: 57 years EKG: Sinus rhythm LOW QRS VOLTAGE IN PRECORDIAL LEADS Since the PREVIOUS TRACING , no significant change noted PREVIOUS TRACIN07/06/2018 03.34 DOCTOR: Eloy Faith Interpretating Date/Time 07/06/2018 14:48:58
[2018-07-06] MEDS ORDERED: Acetaminophen 325 MG Tablet PO ONE (17:33)
[2018-07-07] MEDS ORDERED: buPROPion 100 MG Tablet PO SCH (09:00)
== END 2018-07-06 18:21 | disposition home or self-care (01) ==
LOC: PHEDA 23:08 → PHED 23:08 → PHEDA 07-06 06:46 → PH3 07-06 06:47
PROVIDERS: ADMIT Internal Medicine; ATTEND Internal Medicine
DX: Z86.711 Personal history of pulmonary embolism; E86.0 Dehydration; Z79.84 Long term (current) use of oral hypoglycemic drugs; Z82.49 Family history of ischemic heart disease and other diseases of the circulatory system; M79.7 Fibromyalgia; E11.9 Type 2 diabetes mellitus without complications; Z88.2 Allergy status to sulfonamides; R94.31 Abnormal electrocardiogram [ECG] [EKG]; Z86.718 Personal history of other venous thrombosis and embolism; N17.9 Acute kidney failure, unspecified; R07.9 Chest pain, unspecified